=== PATIENT | male | born 1985 | race Hispanic/Latino ===

== ENCOUNTER → 2019-08-01 | Outpatient (CLI) | payer OTHER ==
--- NOTE | 2019-08-01 11:00 | NUR ---
MBSS COMPLETED. SHALLOW PENETRATION WITH THIN LIQUIDS VIA CONSECUTIVE CUP SIP. RECOMMEND REGULAR TEXTURE, THIN LIQUIDS; PILLS WHOLE WITH LIQUIDS. FIELD CASE MANAGER PROVIDED Pt WITH WRITTEN HANDOUT OF RESULTS AND RECOMMENDATIONS. FIELD CASE MANAGER SPOKE WITH BROTHMARQUISE REBEKAH OVER THE PHONE TO PROVIDE RESULTS AND RECOMMENDATIONS. ALL QUESTIONS ANSWERED AT THIS TIME. Addendum: 08/01/19 at 1259 by NANCY COLLINS [facility] Amended: Links added.
== END | disposition home or self-care (01) ==
LOC: RAH 09:46
PROVIDERS: ATTEND Internal Medicine Gastroenterology
DX: R13.13 Dysphagia, pharyngeal phase (principal); R10.13 Epigastric pain
CPT/HCPCS: 74230; 92611

== ENCOUNTER 2023-10-12 18:45 | Emergency (ER) | payer OTHER ==
[~2023-10-12] VITALS: Ht 162.6 cm; Wt 90.7 kg
[2023-10-12 20:22] LABS: WHITE BLOOD COUNT (AUTO) 10.4 K/uL (4.8-10.8)
[2023-10-12 20:23] LABS: BASOPHILS # (AUTO) 0.06 K/uL (0.00-0.20); BASOPHILS % (AUTO) 0.6 % (0.0-5.0); EOSINOPHILS # (AUTO) 0.19 K/uL (0.00-0.70); EOSINOPHILS % (AUTO) 1.8 % (0.0-8.0); HEMATOCRIT 46.8 % (42-54); IMMATURE GRANULOCYTE ABSOLUTE 0.09 K/uL (0-1); LYMPHOCYTES # (AUTO) 1.1 K/uL (1.0-4.8); LYMPHOCYTES % (AUTO) 10.2 % (21.0-51.0); MEAN CORPUSCULAR HEMOGLOBIN 32.7 pg (27.0-33.0); MEAN CORPUSCULAR HGB CONC 35.7 g/dL (32.0-36.0); MEAN CORPUSCULAR VOLUME 91.8 fL (79-99); MONOCYTES # (AUTO) 0.9 K/uL (0.1-1.0); MONOCYTES % (AUTO) 8.5 % (3.0-13.0); NEUTROPHILS # (AUTO) 8.1 K/uL (1.8-7.7); PLATELET COUNT (AUTO) 218 K/uL (130-400); RED CELL DISTRIBUTION WIDTH 12.7 % (11.0-15.5)
[2023-10-12] MEDS: PANTOPRAZOLE 40 MG/VIAL IVP ONE (20:25)
[2023-10-12] MEDS: LACTATED RINGERS 1000ML 1,000 ML IV ONE (20:25)
[2023-10-12] MEDS: ONDANSETRON 4MG INJ IVP ONE (20:25)
[2023-10-12 20:33] LABS: CREATININE 1.1 mg/dL (0.5-1.3); POTASSIUM 3.9 mmol/L (3.5-5.1)
[2023-10-12 20:37] LABS: ALBUMIN 3.7 g/dL (3.5-5.0); BILIRUBIN,TOTAL 0.6 mg/dL (0.2-1.0); TOTAL PROTEIN, SERUM 7.7 g/dL (6.0-8.3)
[2023-10-12 22:11] VITALS: BP 113/62; PULSE 66; RESP 18
[2023-10-12 22:46] LABS: AMPHET/METH SCREEN,URINE NEGATIVE (NEGATIVE); BARBITURATE SCREEN, URINE NEGATIVE (NEGATIVE); BENZODIAZEPINES SCREEN,URINE NEGATIVE (NEGATIVE); CANNABINOID SCREEN,URINE NEGATIVE (NEGATIVE); COCAINE SCREEN,URINE NEGATIVE (NEGATIVE); OPIATE SCREEN,URINE NEGATIVE (NEGATIVE); PHENCYCLIDINE SCREEN,URINE NEGATIVE (NEGATIVE)
[2023-10-12] MEDS ORDERED: PANT40TA55 PO (22:53)
== END 2023-10-12 22:57 | disposition home or self-care (01) ==
LOC: EDH 18:45
DX: K29.70 Gastritis, unspecified, without bleeding (principal)
CPT/HCPCS: 99284; 96374; 71045; 96375; 82550; 84484; 80053; 80305; 83690; 85025; 36415; 93005; J7120; J2405; C9113